=== PATIENT | female | born 1985 | race Caucasian/White ===

== ENCOUNTER 2016-10-13 19:19 | Emergency (ER) | payer MEDICAID, OTHER ==
[2016-10-13 19:48] VITALS: BP 138/84; PULSE 100; RESP 20; TEMP 99.9; O2SAT 97
--- NOTE | 2016-10-13 20:19 | UCPHY ---
H & P Time Seen by Provider: 10/13/16 20:01 Patient Type: New HPI/ROS: This patient complains of a one-week history of cold symptoms over the past 2 days developed some high fevers chills myalgias as well. She complains of coryza and occasional dry cough. She reports partial improvement from over-the- counter antipyretics with no other exacerbating or alleviating factors. ROS: No significant fatigue. No other constitutional symptoms. HEENT: No significant sore throat. No ear pain. Pulmonary: No pleuritic pain or shortness of breath. GI: No vomiting. 7 point ROS is otherwise negative. Past Medical/Surgical History: Otherwise healthy Social History: Works as a server manager in a restaurant Smoking Status: Unknown if ever smoked Physical Exam: Physical Exam Vital signs are normal. General: No acute distress HEENT: Nose: Clear discharge bilaterally. No sinus tenderness to percussion. Ears: External canals and tympanic membranes are clear with no erythema or abnormal findings bilaterally. Oropharynx: No erythema or exudates. No dysphonia. No drooling or stridor. Eyes: Pupils equal and react to light. Extraocular motions are intact. Lungs: Clear to auscultation bilaterally with no rales, rhonchi or wheeze. No respiratory distress. Cardiac: Regular rate and rhythm with no murmur gallop or rub Skin: No rash or pallor. Neuro: Alert with no focal deficits noted. Initial differential diagnosis: URI with cough, influenza Constitutional: Initial Vital Signs Temperature (C) 37.7 C 10/13/16 19:43 Heart Rate 100 10/13/16 19:43 Respiratory Rate 20 10/13/16 19:43 Blood Pressure 138/84 H 10/13/16 19:43 O2 Sat (%) 97 10/13/16 19:43 O2 Delivery Mode Room Air Allergies/Adverse Reactions: No Known Allergies Allergy (Verified 10/13/16 19:48) Home Medications: Medication Instructions Recorded Miscellaneous Medical Supply [NO 1 ea [facility] [place] AD 02/22/13 HOME MEDS] MDM/Departure - MDM Diagnostics: Positive influenza B a rapid flu ED Course/Re-evaluation: I counseled the patient regarding influenza. She appears clinically well despite this with no evidence to suggest lower respiratory infection or other complicating factors. - Depart Disposition: Home, Routine, Self-Care Clinical Impression: Influenza B Condition: Good Instructions: Influenza (ED) Additional Instructions: Diagnosis: Influenza B Plan: Humidifier Ibuprofen-600 mg per 6 hours as needed for aches and fevers Tylenol in addition if needed No work until her fever has resolved for 24 hours or more. Return for any significant worsening despite treatment plan Her symptoms likely improve over the next 3-5 days. Stand Alone Forms: Work Excuse Referrals: [facility],. [Primary Care Provider] - As per Instructions - PQRS PQRS Measurement: NA
[2016-10-13] MEDS ORDERED: OSELTAMIVIR PHOSPHATE 75 MG CAP PO ONE (20:35)
== END 2016-10-13 20:20 | disposition home or self-care (01) ==
LOC: CED 19:19
DX: J09.X2 Influenza due to identified novel influenza A virus with other respiratory manifestations (principal)
CPT/HCPCS: 87400-PO; 99203-PO; G0463-PO